=== PATIENT | female | born 1975 | race African-American/Black ===

== ENCOUNTER 2024-02-25 15:48 | Emergency (ER) | payer MEDICAID, OTHER ==
[~2024-02-25] VITALS: Ht 154.9 cm; Wt 100.0 kg
[2024-02-25] MEDS ORDERED: LIPI10TA PO (16:00)
[2024-02-25] MEDS ORDERED: ASPI-655 PO (16:00)
[2024-02-25] MEDS ORDERED: CLOP75TA99 PO (16:00)
[2024-02-25] MEDS ORDERED: AMLO25TA PO (16:00)
[2024-02-25 19:52] LABS: BASO # 0.1 10^3/uL (0.0-0.2); BASO % 0.6 % (0.0-1.0); EOS # 0.2 10^3/uL (0.0-0.5); EOS % 2.9 % (0.0-3.0); HEMATOCRIT 38.7 % (36.0-47.0); HEMOGLOBIN 12.2 g/dl (12.0-15.5); LYMPH # 3.2 10^3/uL (1.5-5.0); LYMPH % 40.7 % (24.0-44.0); MEAN CORPUSCULAR HEMOGLOBIN 25.7 pg (27.0-33.0); MEAN CORPUSCULAR HGB CONC 31.5 g/dl (32.0-36.5); MEAN CORPUSCULAR VOLUME 81.5 fl (80.0-96.0); MONO # 0.7 10^3/uL (0.0-0.8); MONO % 9.1 % (2.0-8.0); NEUTROPHILS # 3.6 10^3/uL (1.5-8.5); NEUTROPHILS % 46.4 % (36.0-66.0); PLATELET COUNT, AUTOMATED 289 10^3/uL (150-450); RED BLOOD COUNT 4.75 10^6/uL (4.00-5.40); WHITE BLOOD COUNT 7.8 10^3/uL (4.0-10.0)
[2024-02-25 20:15] LABS: ERYTHROCYTE SEDIMENTATION RATE 22 mm/hr (0-20)
[2024-02-25 20:17] LABS: URIC ACID 6.9 MG/DL (3.1-7.8)
[2024-02-25 20:19] LABS: C REACTIVE PROTEIN QUANTITATIV < 0.40 MG/DL (<1.0)
[2024-02-25 20:20] LABS: BLOOD UREA NITROGEN 12 MG/DL (9-23); CALCIUM LEVEL 9.3 MG/DL (8.5-10.1); CARBON DIOXIDE LEVEL 25 MMOL/L (20-31); CHLORIDE LEVEL 111 MMOL/L (98-107); GLOMERULAR FILTRATION RATE > 60.0 (>58); GLUCOSE, FASTING 76 MG/DL (60-100); POTASSIUM SERUM 4.3 MMOL/L (3.5-5.1); SODIUM LEVEL 138 MMOL/L (136-145)
[2024-02-25] MEDS: GABAPENTIN 300 MG CAP PO ONE (20:23)
[2024-02-25] MEDS: ACETAMINOPHEN 325 MG TAB PO ONE (20:23)
[2024-02-25] MEDS ORDERED: MEDR4PAK PO (22:26)
[2024-02-25 22:47] VITALS: BP 134/78; TEMP 97.8; O2SAT 98
== END 2024-02-25 22:49 | disposition home or self-care (01) ==
LOC: EDBD 15:48 → M ED 15:48
DX: M79.672 Pain in left foot (principal); I10 Essential (primary) hypertension; F17.200 Nicotine dependence, unspecified, uncomplicated; Z79.82 Long term (current) use of aspirin; Z79.02 Long term (current) use of antithrombotics/antiplatelets; Z79.899 Other long term (current) drug therapy; Z86.718 Personal history of other venous thrombosis and embolism